=== PATIENT | female | born 1970 | race Caucasian/White ===

== ENCOUNTER 2020-11-18 18:20 | Emergency (ER) | payer OTHER ==
[2020-11-18 18:59] VITALS: BP 136/82; PULSE 83; TEMP 99; BMI 25.7
== END 2020-11-18 21:07 | disposition home or self-care (01) ==
LOC: JER 18:20
DX: R06.02 Shortness of breath (principal); R50.9 Fever, unspecified; Z03.818 Encounter for observation for suspected exposure to other biological agents ruled out
CPT/HCPCS: 71046-TC-FY; 99284-25; C9803; U0003

== ENCOUNTER 2023-12-15 19:21 | Emergency (ER) | payer OTHER ==
[2023-12-15 19:27] VITALS: BP 143/75; PULSE 87; RESP 16; TEMP 98.4; BMI 25.7
[2023-12-15 20:38] LABS: BASO % 0.3 % (0-2.0); EOS % 0.8 % (0-4.5); HEMATOCRIT 40.6 % (32.4-45.2); HEMOGLOBIN 13.7 GM/dL (10.7-15.3); LYMPH % 20.4 % (8-40); MCH 29.3 pg (25.7-33.7); MCHC 33.8 g/dl (32.0-36.0); MEAN CELL VOLUME 86.8 fl (80-96); MEAN PLT VOLUME 7.4 fl (7.5-11.1); MONO % 5.5 % (3.8-10.2); PLATELET COUNT 265 10^3/uL (134-434); RBC 4.67 M/mm3 (3.60-5.2); RDW 13.6 % (11.6-15.6); WHITE BLOOD COUNT 9.4 K/mm3 (4.0-10.0)
[2023-12-15 20:44] LABS: INR 1.03 (0.83-1.09)
[2023-12-15 21:06] LABS: POTASSIUM 4.4 mmol/L (3.5-5.1)
[2023-12-15 21:08] LABS: ALBUMIN 3.4 g/dl (3.4-5.0); BLOOD UREA NITROGEN 7.9 mg/dL (7-18); CALCIUM 8.6 mg/dL (8.5-10.1); MAGNESIUM 2.1 mg/dL (1.8-2.4)
[2023-12-15 21:12] LABS: CREATININE 0.7 mg/dL (0.55-1.3)
[2023-12-15 21:13] LABS: BILIRUBIN,TOTAL 0.3 mg/dL (0.2-1); TOT PROT 6.5 g/dl (6.4-8.2)
== END 2023-12-15 22:02 | disposition home or self-care (01) ==
LOC: JER 19:21
DX: R22.43 Localized swelling, mass and lump, lower limb, bilateral (principal); M25.561 Pain in right knee; S70.11XA Contusion of right thigh, initial encounter; S70.12XA Contusion of left thigh, initial encounter; M79.602 Pain in left arm; E86.0 Dehydration; R63.0 Anorexia; X58.XXXA Exposure to other specified factors, initial encounter
CPT/HCPCS: 36415; 80053; 83735; 85025; 85610; 85651; 86140; 86850; 86900; 86901; 93970-TC; 99284-25